=== PATIENT | male | born 1965 | race Caucasian/White ===

== ENCOUNTER 2020-04-03 01:12 | Outpatient (CLI) | payer BC, SELFPAY ==
[2020-04-03 18:47] LABS: SARS-CoV-2 RNA PCR Negative
== END 2020-04-03 01:13 | disposition home or self-care (01) ==
LOC: ANHCOVIDDT 01:12
PROVIDERS: PCP Internal Medicine; Visit Provider Internal Medicine Gastroenterology
DX: Z01.812 Encounter for preprocedural laboratory examination (principal); Z20.822 Contact with and (suspected) exposure to COVID-19
CPT/HCPCS: C9803; U0003; U0005

== ENCOUNTER 2020-04-07 02:14 | Day surgery (SDC) | payer BC, SELFPAY ==
[2020-03-26 09:50] VITALS: BMI 25.7
[2020-04-07 06:54] VITALS: BP 135/82; PULSE 85; RESP 18; TEMP 36.3; O2SAT 99; BMI 25.7
[2020-04-07] MEDS: LACTATED RINGERS 1,000 ML 150 ML IV CONT (07:05)
--- NOTE | 2020-04-07 08:04 | P.PNAN_ITS ---
Anes - Initial Pre Proc Eval Procedure: Operation Date: 04/07/20 08:15 Proposed Procedures p Esophagogastroduodenoscopy & Screening Colonoscopy - Johnnie Braga MD Date/Time: 04/07/20 08:04 Surgeon: Johnnie Rogers MD Pre Op Diagnosis: GERD, neoplasm screening Patient Data Age: 54 Gender: M Height: 6 ft Weight: 86.1 kg Last Vital Signs Temp 97.3 F L 04/07/20 06:54 Pulse 85 04/07/20 06:54 Resp 18 04/07/20 06:54 BP 135/82 04/07/20 06:54 Pulse Ox 99 04/07/20 06:54 Allergies Allergy/AdvReac Type Severity Reaction Status Date / Time No Known Allergies Allergy Verified 04/07/20 06:53 Home Medications Medication Instructions Recorded Confirmed Type No Home Medications 03/26/20 04/07/20 History Patient hx anesthesia problems: none Family hx anesthesia problems: none [facility] Past Medical History Medical History (Updated 11/07/19 @ 09:22 by Johnnie Rogers MD) Colon cancer screening Social History Social History Smoking packs per day: 1 Smoking cigarettes per day: 20.0 Years smoked: 25 Smoking pack-years: 25.00 Smoking status: Former smoker Tobacco type: cigarettes Alcohol intake: current Drinks per week: 5 Substance use: never Substance use type: does not use Living arrangements: with family Spiritual care concerns: No Anes - Eval Final PreProcedure Day of Procedure 04/07/20 08:04 Patient weight: normal Heart: regular rate and rhythm Lungs: clear to auscultation Airway: Mallampati scale class II Neurological: alert and oriented Last oral intake: >/= 8 hours ASA classification: II Emergent: no Anesthetic plan: proceed Anesthesia type and monitoring: general GIVS and standard monitoring Informed Consent: The patient's anesthetic plan and its attendant risks and benefits were discussed with the patient/family/POA. Questions were solicited and answers provided to the satisfaction of the patient/family/POA.
--- NOTE | 2020-04-07 08:07 | PM.HPGS ---
History of Present Illness History of Present Illness Consent: Risks, benefits, and alternatives have been discussed and questions answered. Patient agrees to proceed with procedure. Chief complaint: GERD, neoplasm screening Narrative: Benedict Burns is a 54 year old male with dyspepsia, tried omeprazole but pain worsened. Also needs first screening colonoscopy. Review of Systems Constitutional: Constitutional: Denies headache(s) and Denies weakness Eyes: Eyes: Denies blurry vision ENT: Reports Normal hearing present, Denies headache(s) and Denies neck pain Cardiovascular: Cardiovascular: Denies chest pain and Denies dyspnea Respiratory: Respiratory: Denies dyspnea Gastrointestinal: Gastrointestinal: Reports no additional gastrointestinal complaints Genitourinary: Genitourinary: Denies dysuria Musculoskeletal: Musculoskeletal: Denies neck pain Integumentary/Breasts: Skin/Breast: Denies dry skin Neurologic: Reports Normal hearing present, Denies headache(s) and Denies weakness Psychiatric: Psychiatric: Denies anxiety Endocrine: Endocrine: Denies change in body appearance Hematologic/Lymphatic: Hematologic/Lymphatic: Denies easy bleeding Allergic/Immunologic: Allergic/Immunologic: Denies urticaria PMFSH Past Medical History Medical History (Updated 11/07/19 @ 09:22 by Johnnie Rogers MD) Colon cancer screening Social History Social History Smoking packs per day: 1 Smoking cigarettes per day: 20.0 Years smoked: 25 Smoking pack-years: 25.00 Smoking status: Former smoker Tobacco type: cigarettes Alcohol intake: current Drinks per week: 5 Substance use: never Substance use type: does not use Living arrangements: with family Spiritual care concerns: No Meds Home Medications and Allergies Home Medications Medication Instructions Recorded Confirmed Type No Home Medications 03/26/20 04/07/20 History Allergies Allergy/AdvReac Type Severity Reaction Status Date / Time No Known Allergies Allergy Verified 04/07/20 06:53 Vital Signs Vital Signs - 24 hr 04/07/20 06:54 Temperature 97.3 F L Pulse Rate 85 Respiratory Rate 18 Blood Pressure 135/82 Pulse Oximetry 99 Exam Const: General: comfortable and no acute distress HENMT: General nose exam: Normal nares present Eyes: General: appearance normal, both eyes and all related structures Neck: Neck: no JVD Resp: Auscultation: clear to auscultation bilaterally Cardio: Rate: regular rate Rhythm: regular rhythm GI: Inspection: non-distended GI Palp: Yes Soft to palpation Skin: General skin exam: normal color Neuro: General: gait normal Speech: normal speech Extrem: General: normal to inspection Psych: Mental Status: mental status grossly normal Assessment and Plan Assessment and plan (1) GERD (gastroesophageal reflux disease): Code(s): K21.9 - Gastro-esophageal reflux disease without esophagitis Status: Acute Assessment and Plan: egd with bx (2) Colon cancer screening: Code(s): Z12.11 - Encounter for screening for malignant neoplasm of colon Status: Acute Assessment and Plan: will proceed with colonoscopy
[2020-04-07] MEDS: BENZOCAINE (*SP) 60 ML SPRAY CAN (HURRICAINE) 1 SPRAY MUCOUS MEM (08:17)
--- NOTE | 2020-04-07 08:30 | SUR.OPER ---
823 EGD FINISHED, 829-COLONOSCOPY STARTED
[2020-04-07 08:42] VITALS: BP 114/76; PULSE 88; RESP 21; O2SAT 99
[2020-04-07 08:52] VITALS: BP 121/82; PULSE 70; RESP 14; O2SAT 97
[2020-04-07 09:02] VITALS: BP 146/99; PULSE 66; RESP 22; O2SAT 99
== END 2020-04-07 09:14 | disposition home or self-care (01) ==
PROVIDERS: PCP Internal Medicine; Visit Provider Internal Medicine Gastroenterology
PROC: 0DJ08ZZ Inspection of Upper Intestinal Tract, Via Natural or Artificial Opening Endoscopic (ICD-10-PCS; CPT 43235; principal; 2020-04-07 08:15)
DX: Z12.11 Encounter for screening for malignant neoplasm of colon (principal); D12.4 Benign neoplasm of descending colon; K64.8 Other hemorrhoids; K21.00 Gastro-esophageal reflux disease with esophagitis, without bleeding; Z87.891 Personal history of nicotine dependence
CPT/HCPCS: 45385; 43239; 88305; J2704; J7120

== ENCOUNTER 2023-02-04 17:46 | Emergency (ER) | payer BC, SELFPAY ==
--- NOTE | ~2023-02-04 | CT_ITS ---
EXAMINATION: CT facial bones w con DATE: 02/04/2023 20:42 INDICATION: L facial swelling . TECHNIQUE: Computed tomography (CT) of the facial bones and maxillofacial region was performed withou t intravenous contrast. Automated exposure control and iterative reconstruction technique were employ ed. The dose-length product was 416.08 mGy-cm. COMPARISON: None. FINDINGS: Soft Tissues: There is hyperenhancement and inflammatory change surrounding the left parotid gland. Facial bones: No acute fracture. No lytic or blastic process. Eyes: The globes are intact. The soft tissue planes of the orbits are maintained. Paranasal Sinuses: Frontal and anterior ethmoid mucosal thickening. The remaining visualized aerated spaces are clear. Foreign Bodies: No radiopaque foreign bodies. Other Findings: None. IMPRESSION: CT findings suggestive left parotiditis. Reviewed, dictated and finalized at location [facility]
[2023-02-04 17:54] VITALS: BP 170/96; PULSE 71; RESP 20; TEMP 36.5; O2SAT 98
--- NOTE | 2023-02-04 19:16 | ED.GENADULT ---
[facility] - General Adult General Chief complaint: Dental/Oral Stated complaint: facial swelling Time Seen by Provider: 02/04/23 19:02 Source: patient Mode of arrival: ambulatory Limitations: no limitations History of Present Illness HPI narrative: This is a 57-year-old male with no pertinent PMH who presents ED with chief complaint of left facial swelling and pain beginning 4 days ago. States today he was falling asleep on his hand the other day when his vomit jammed into the skin behind the ear. Reports ever since then he has noticed facial swelling and pain has been increasing. Reports that is spreading into the left cheek area and left lower jaw area. Denies ear pain. Denies fevers, chills, nausea, vomiting. Denies headache or neck pain. Denies sore throat, trismus or drooling. Reports pain 08/26 now. Related Data Allergies Allergy/AdvReac Type Severity Reaction Status Date / Time No Known Allergies Allergy Verified 10/25/20 07:42 Review of Systems Review of Systems: All systems as dictated in [facility] Past Medical History Medical History (Updated 02/04/23 @ 21:10 by Brandon Lazaro PA-C) Colon cancer screening Social History Social History (Updated 10/25/20 @ 07:43 by Tejal Hebert MA) Smoking packs per day: 1 Smoking cigarettes per day: 20.0 Years smoked: 25 Smoking pack-years: 25.00 Smoking status: Current every day smoker Tobacco type: cigarettes Second hand tobacco smoke exposure: Yes Smoking end date: 03/19/04 Alcohol intake: current Drinks per week: 8 Substance use: never Substance use type: does not use Living arrangements: with family Spiritual care concerns: No Exam Narrative: GENERAL: Well-appearing, well-nourished, and in no acute distress. HEAD: Normocephalic, atraumatic. EYES: PERRLA and EOMI. EOMs without pain. ENT: Moderate swelling to the left side of the face extending to the left mandible area. No redness. There is tenderness in the area. No mastoid tenderness. TMs clear bilaterally. For the mouth intact. No trismus or drooling. No voice change. Nares clear, no rhinorrhea or epistaxis. Mucous membranes moist. Oropharynx without tonsillar hypertrophy exudate or other lesions. NECK: Supple. No adenopathy or masses. CHEST: No respiratory distress. Clear to auscultation. No wheezes rales or rhonchi HEART: Regular rate and rhythm. No murmur heard. Normal peripheral pulses. ABDOMEN: Soft, nontender, nondistended, normal active bowel sounds. MSK: Normal range of motion. No edema. SKIN: Warm, dry, no rash. NEURO: Alert and oriented x3. No focal deficits. PSYCH: Normal mood and affect. Course Vital Signs Vital signs: Vital Signs Temperature 97.7 F 02/04/23 17:54 Pulse Rate 71 02/04/23 17:54 Respiratory Rate 20 02/04/23 17:54 Blood Pressure 170/96 H 02/04/23 17:54 Pulse Oximetry 98 02/04/23 17:54 Oxygen Delivery Room Air 02/04/23 17:54 Temperature 97.7 F 02/04/23 17:54 Pulse Rate 71 02/04/23 17:54 Respiratory Rate 20 02/04/23 17:54 Blood Pressure 170/96 H 02/04/23 17:54 Pulse Oximetry 98 02/04/23 17:54 Oxygen Delivery Room Air 02/04/23 17:54 Medical Decision Making MDM Narrative Medical decision making narrative: This is a 37-year-old male who presents to the ED with chief complaint of left facial swelling for the past couple of days. Vitals are normal. Afebrile. Exam shows moderate swelling to the left side of the face extending to the left mandible. The area is tender. Lab work reveals elevated white count of 15.1 with left shift. CMP unremarkable. CT facial with IV contrast reveals evidence of acute parotitis on the left side. He was given 1 g of Ancef here in the department. Prescription for Augmentin given. Symptoms consistent with parotitis, he says he is up-to-date on MMR vaccines. He was also given instructions regarding sialagogues for possible clogged duct. Pt will be dis
[2023-02-04] MEDS: KETOROLAC 15 MG/ML VIAL (*BKC) IV PUSH (19:37)
[2023-02-04 19:44] LABS: Basophils Absolute Auto 0.1 K/mm3 (0.0-0.1); Basophils Percent Auto 0.4 % (0.2-1.2); Eosinophils Absolute Auto 0.4 K/mm3 (0-0.3); Eosinophils Percent Auto 2.8 % (0-4.4); Hematocrit 44.3 % (42.0-52.0); Hemoglobin 14.6 g/dL (14.0-18.0); Immature Granulocyte Absolute 0.07 K/mm3 (0.00-0.031); Immature Granulocyte Percent A 0.5 % (0-0.5); Lymphocytes Absolute Auto 2.49 K/mm3 (0.9-3.2); Lymphocytes Percent Auto 16.5 % (18.3-44.2); Mean Corpuscular Hemoglobin 29.8 pg (26-34); Mean Corpuscular Volume 90.4 fl (80-100); Mean Platelet Volume 11.2 fl (7.4-10.4); Monocytes Absolute Auto 1.8 K/mm3 (0.1-0.6); Monocytes Percent Auto 11.6 % (2.6-8.5); Neutrophils Absolute Auto 10.3 K/mm3 (1.3-6.7); Neutrophils Percent Auto 68.2 % (45.5-73.1); Platelet Count Result 223 k/mm3 (150-375); White Blood Count 15.1 K/mm3 (4.5-10.0)
[2023-02-04 19:54] LABS: Alanine Aminotransferase 25 U/L (6-50); Albumin Level 4.5 g/dL (3.5-5.1); Alkaline Phosphatase 80 U/L (38-126); Anion Gap 11 mmol/L (8-16); Aspartate Amino Transferase 35 U/L (17-59); Bilirubin,Total 0.7 mg/dL (0.2-1.3); Blood Urea Nitrogen 10 mg/dL (9-20); Calcium 9.5 mg/dL (8.4-10.2); Carbon Dioxide 25 mmol/L (22-30); Chloride 103 mmol/L (98-107); Estimated CRCL calculation 92 ml/min; Estimated Glomerular Filt Rate > 60; Glucose 105 mg/dL (65-110); Potassium 3.8 mmol/L (3.4-5.0); Sodium 139 mmol/L (137-145)
[2023-02-04] MEDS: MORPHINE SULFATE (*CRX) 4 MG/ML INJ IV PUSH (20:25)
[2023-02-04] MEDS: ceFAZolin 1 GM/NS 50 ML 1 GM/50 ML BAG IVPB (21:15)
[2023-02-04 21:50] VITALS: BP 153/88; PULSE 66; RESP 20; O2SAT 100
== END 2023-02-04 21:56 | disposition home or self-care (01) ==
PROVIDERS: Emergency Provider Physician Assistant; PCP Internal Medicine
DX: K11.21 Acute sialoadenitis (principal); Z87.891 Personal history of nicotine dependence
CPT/HCPCS: 36415; 70487; 80053; 85025; 96365; 96375; 99284; J0690; J1885; J2270; Q9967